=== PATIENT | female | born 1960 | race Caucasian/White ===

== ENCOUNTER 2024-03-21 09:10 | Emergency (ER) | payer BC ==
[2024-03-21 09:17] VITALS: BP 139/79; PULSE 71; RESP 18; TEMP 97.7; BMI 22.0
== END 2024-03-21 09:58 | disposition home or self-care (01) ==
LOC: JERFT 09:10
PROC: 0R9 Upper Joints, Drainage (ICD-10-PCS; principal; 2024-03-21)
DX: L03.011 Cellulitis of right finger (principal)
CPT/HCPCS: 99283-25